=== PATIENT | male | born 1955 | race Asian ===

== ENCOUNTER 2017-01-14 06:27 | Day surgery (SDC) | payer OTHER ==
--- NOTE | 2017-01-04 15:52 | HP ---
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 Over the past several months, the patient has noted an obvious bulge at the level of the left groin, which is becoming increasingly uncomfortable. On examination, he has a right inguinal hernia as well. He presents for definitive management. No underlying GI, , or respiratory complaints to suggest predisposition to hernia formation. PAST MEDICAL HISTORY: Essentially nil. No history of hypertension, heart disease, diabetes, diabetes, respiratory, renal or hepatic insufficiency. PAST SURGICAL HISTORY: Nil. ALLERGIES: None known. REGULAR MEDICATIONS: None. SOCIAL HISTORY: Negative tobacco. Alcohol once weekly. FAMILY HISTORY: Father age 83, no health issues. Mother age 82, history of hypercholesterolemia. REVIEW OF SYSTEMS: Nil. PHYSICAL EXAMINATION: General: The patient examined in erect position. Abdomen: He has an obvious reducible left inguinal hernia that is moderate in size. There are no obvious right hernias identified. Additional examination through the external rings, a right inguinal hernia can be palpated as well. Genitourinary: Testes unremarkable. IMPRESSION: Bilateral inguinal hernias with left symptomatic and larger. PLAN: Bilateral laparoscopic inguinal hernia repair with mesh. If the procedure cannot be accomplished laparoscopically, we will move in the direction of open left inguinal repair with mesh. Indications, alternatives and possible complications reviewed. Consent obtained. The patient was seen preoperatively by Dr. Alejandro Caldwell. Please refer to his note for those medical details. Douglas MARIO/[id number] CC: Araceli Caldwell MD
[2017-01-07 12:45] VITALS: BMI 21.7
[~2017-01-14 06:27] MED LIST: ONDANSETRON 4 MG/2 ML VIAL IVPUSH PRN; PROMETHAZINE HCL 25 MG/1 ML VIAL IVPUSH PRN; oxyCODONE HCL 5 MG TABLET PO PRN
[2017-01-14] MEDS ORDERED: TAMSULOSIN HCL 0.4 MG CAP.ER.24H (FP) ONE (06:45)
[2017-01-14] MEDS ORDERED: ACETAMINOPHEN INJECTION 100 ML IVPB ONE (06:53)
[2017-01-14] MEDS ORDERED: BUPIVACAINE HCL/PF 2.5 MG/ML - 30 ML VIAL IJ ONE (07:15)
[2017-01-14] MEDS ORDERED: MIDAZOLAM HCL 2 MG/2 ML SINGLE DOSE VIAL ONE (07:54)
[2017-01-14] MEDS ORDERED: PROPOFOL 20 ML ONE ×2 (09:11)
[2017-01-14] MEDS ORDERED: NEOSTIGMINE METHYLSULFATE 0.5 MG/ML - 10 ML MDV ONE (09:17)
[2017-01-14] MEDS ORDERED: GLYCOPYRROLATE 0.2 MG/1 ML VIAL ONE (09:17)
[2017-01-14] MEDS ORDERED: ONDANSETRON 4 MG/2 ML VIAL ONE (09:19)
[2017-01-14] MEDS ORDERED: oxyCODONE HCL 5 MG TABLET ONE (12:16)
[2017-01-14 12:29] VITALS: PULSE 59
[2017-01-14 14:14] VITALS: TEMP 98.1
[2017-01-14 14:48] VITALS: BP 145/97
--- NOTE | 2017-01-15 10:12 | OP ---
DATE OF OPERATION: 01/14/2017 PREOPERATIVE DIAGNOSIS: Bilateral inguinal hernias. POSTOPERATIVE DIAGNOSIS: Bilateral indirect inguinal hernias. PROCEDURE: Bilateral laparoscopic inguinal hernia repair with mesh. 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 The left side larger and symptomatic. Indications, alternatives, and possible complications reviewed. Consent obtained. PROCEDURE: With the patient in the supine position under general anesthesia, abdomen was prepped and draped in sterile fashion using chlorhexidine. A small incision was made just beneath the umbilicus and off to the right of the midline. The subcutaneous tissues were . The anterior rectus sheath on the right side was incised. The rectus muscle fibers were retracted laterally in both directions, exposing the preperitoneal space. The dissection was advanced into the preperitoneal space toward the pubis. The balloon was insufflated, creating a dissection. The camera lens was passed through this port and the preperitoneal space visualized. Under direct vision, a 11mm port was placed in the midline midway between the umbilicus and the pubis. The operating instruments were passed through this port. Exploration of the preperitoneal space allowed recognition of the anatomy. There were obvious bilateral indirect inguinal hernias noted with the larger sac noted on the left. There were no direct or femoral components noted. There was some attenuation of the direct space noted on the left. First directing our attention to the right side, the smaller sac was reduced with skeletonization of the cord. The right side was repaired using a piece of 4- inch by 6-inch Parietex mesh. The mesh was keyholed and placed in the preperitoneal space. It was tacked in place using counterpalpation and AbsorbaTacker. The mesh was fixed anterior to the anterior abdominal wall. The mesh was fixed superiorly to the iliopubic tract. The mesh was fixed inferiorly to Negrito ligament and the pubic tubercle. The keyhole leaf was wrapped around the cord and tacked in place, reconstructing the internal ring. Now directing our attention to the contralateral side, the larger indirect component was reduced with skeletonization of the cord. The left side was repaired with the mesh and technique as described above for the contralateral side. Ultimately, the mesh was noted to overlap in the midline. Adequate hemostasis was ensured. The midline port was removed under direct vision, no bleeding identified. Ultimately, the camera lens and port were removed from the umbilical port site and the gas was allowed to escape from the preperitoneal space. The fascia at both port sites was closed using interrupted No. 1 Vicryl sutures. All skin wounds were closed using subcuticular 4-0 Biosyn sutures. NEEDLE AND INSTRUMENT COUNT: Correct. ESTIMATED BLOOD LOSS: Minimal. SPECIMEN: None. DRAINS: None. IMPLANT: Parietex mesh x2. The patient tolerated the procedure. The procedure was terminated. MARCOS IGLESIAS M.D. [id number] MTDD
== END 2017-01-14 14:48 | disposition home or self-care (01) ==
LOC: FASU 06:27
PROVIDERS: ATTEND Surgery
PROC: 0YUA4JZ Supplement Bilateral Inguinal Region with Synthetic Substitute, Percutaneous Endoscopic Approach (ICD-10-PCS; principal; 2017-01-14 08:21)
DX: K40.20 Bilateral inguinal hernia, without obstruction or gangrene, not specified as recurrent (principal)
CPT/HCPCS: 94760